=== PATIENT | female | born 1975 | race Caucasian/White ===

== ENCOUNTER 2019-11-03 04:36 | Emergency (ER) | payer BC ==
[2019-11-03] MEDS ORDERED: Ketorolac Tromethamine 30 MG/ML VIAL ONE (05:23)
[2019-11-03 05:51] LABS: Bilirubin Negative (Negative); Blood, Urine Moderate (Negative); Glucose, Urine (Dipstick) Negative (Negative); Leukocyte Negative (Negative); Nitrite Negative (Negative); Protein, Urine (Dipstick) Negative (Neg-Trace); Urobilinogen 0.2 mg/dL (Less than 2)
[2019-11-03 05:52] LABS: Clarity Slightly Cloudy (Clear)
[2019-11-03 05:55] LABS: #Basophils 0.1 thou/uL (0.0-0.2); #Eosinphils 0.1 thou/uL (0.0-0.7); #Lymphocytes 1.2 thou/uL (1.20-3.40); #Monocytes 0.5 thou/uL (0.11-0.59); #Neutrophils 5.6 thou/uL (1.40-6.50); %Basophils 0.7 % (0.0-1.0); %Lymphocytes 16.2 % (21.0-51.0); %Monocytes 6.7 % (0.0-10.0); %Neutrophils 75.3 % (42.0-75.0); Hemoglobin 13.4 g/dL (12.0-16.0); Mean Corpuscular HGB CONC 33.8 g/dL (32.0-36.0); Mean Corpuscular Hemoglobin 29.6 pg (27.0-31.0); Mean Corpuscular Volume 87.5 fL (78.0-98.0); Mean Platelet Volume 9.8 fL (7.4-10.4); Platelet Count 213 thou/uL (130-400); RBC Distribution Width 11.2 % (11.5-14.5); Red Blood Cell (RBC) Count 4.51 mill/uL (4.20-5.40); White Blood Cell (WBC) Count 7.4 thou/uL (4.8-10.8)
[2019-11-03 05:58] LABS: BHCG - Serum Negative (NEGATIVE); Bacteria/HPF Rare-Few HPF (None Seen); Mucous/LPF 2+ LPF (<2+); Squamous Epithelial 0-3 HPF (0-3); WBC/HPF 0-3 HPF (0-3)
[2019-11-03 05:59] LABS: Pregs Control Background? CLEAR/WHITE (CLR/WHITE); Pregs Control Bar Appear? YES (CONTROL BAR)
[2019-11-03 06:11] LABS: ALT (SGPT) 18 U/L (8-55); AST (SGOT) 15 U/L (5-34); Albumin 4.2 g/dL (3.5-5.0); Alkaline Phosphatase 71 U/L (40-110); Anion Gap 14 mmol/L (10-20); BUN (Urea Nitrogen) 15 mg/dL (7.0-18.7); Bilirubin, Total 0.3 mg/dL (0.2-1.2); Calc. Creatinine Clearance 0 mL/min (70-130); Calcium 9.5 mg/dL (7.8-10.44); Carbon Dioxide 24 mmol/L (22-29); Chloride 106 mmol/L (98-107); Estimated GFR-MDRD 68; Globulin 3.5 g/dL (2.4-3.5); Glucose 103 mg/dL (70-105); Lipase 19 U/L (8-78); Potassium 3.5 mmol/L (3.5-5.1); Protein, Total 7.7 g/dL (6.0-8.3); Sodium 140 mmol/L (136-145)
[2019-11-03] MEDS ORDERED: Sodium Chloride 0.9% 1,000 ML BAG ONE (07:04)
--- NOTE | 2019-11-03 07:10 | CT ---
CT ABDOMEN AND PELVIS WITHOUT CONTRAST: Date: 11/03/2019 INDICATION: Left-sided flank pain. COMPARISON: Prior CT abdomen and pelvis dated 09/06/2005. FINDINGS: Lung bases are clear. The unopacified liver, gallbladder, pancreas, adrenal glands, and spleen appear within normal limits. There is a 1.4 mm nonobstructing calculus within the superior pole of the left kidney. There is mild left hydronephrosis. There is a proximal left ureteral stone measuring 2.5 mm. No right-sided renal o r ureteral calculus is identified. The bladder is partially decompressed. No free fluid or enlarged lymph nodes are evident. There is a normal appendix in the right lower quadrant. Reproductive structures, rectum, and perirectal soft tissues are unremarkable appearing. There are bilateral pars defects at L5 with Grade I anterolisthesis. IMPRESSION: 1. 2.5 mm proximal left ureteral stone with mild left hydronephrosis. 2. Left nephrolithiasis. 3. Bilateral pars defects at L5 with Grade I anterolisthesis. POS: BH
== END 2019-11-03 06:57 | disposition home or self-care (01) ==
LOC: MADERS 04:36
DX: N13.2 Hydronephrosis with renal and ureteral calculous obstruction (principal)
CPT/HCPCS: 74176; 80053; 81003; 81015; 83690; 84703; 85025; 96361; 96374; J1885; J7050